=== PATIENT | male | born 1980 | race Caucasian/White ===

== ENCOUNTER 2021-10-31 13:31 | Emergency (ER) | payer SELFPAY ==
[~2021-10-31] VITALS: Ht 170.2 cm; Wt 108.9 kg
--- NOTE | 2021-10-31 13:50 | ED Upper Extremity ---
General Chief Complaint: Foreign Body Stated Complaint: R HAND NAIL IMBEDDED Source: patient Exam Limitations: no limitations (VIRGINIE SMITH APRN) History of Present Illness Date Seen by Provider: Oct 31, 2021 Time Seen by Provider: 13:50 Initial Comments To ER by employer with reports of a nail into the right hand that enters through the palmar aspect over the distal fifth metacarpal and exits dorsally over the more ulnar side. Tetanus is up-to-date. This was from a nail gun. Onset: just prior to arrival Severity: moderate Pain/Injury Location: right hand Method of Injury: unknown Modifying Factors: Improves With Movement (VIRGINIE SMITH APRN) Allergies and Home Medications Allergies Coded Allergies: No Known Drug Allergies (Unverified , 10/31/21) Patient Home Medication List Home Medication List Reviewed: Yes (VIRGINIE SMITH APRN) Cephalexin (Cephalexin) 500 Mg Tablet, 500 MG PO QID Prescribed by: VIRGINIE SMITH on 10/31/211610 Last Action: New Order Hydrocodone/Acetaminophen (Hydrocodone-Acetamin 5-325 mg) 1 Each Tablet, 1 TAB PO Q4H PRN for PAIN-MODERATE (5-7) Prescribed by: VIRGINIE SMITH on 10/31/211610 Last Action: New Order Review of Systems Constitutional: see HPI EENTM: see HPI Respiratory: no symptoms reported Cardiovascular: no symptoms reported Genitourinary: no symptoms reported Musculoskeletal: see HPI Skin: no symptoms reported Psychiatric/Neurological: No Symptoms Reported (VIRGINIE SMITH APRN) Physical Exam Vital Signs Vital Signs - First Documented 10/31/21 10/31/21 13:40 14:56 Temp 35.1 Pulse 79 Resp 16 B/P (MAP) 175/112 (133) Pulse Ox 99 O2 Delivery Room Air (MIKE BARRIOS MD) Vital Signs Capillary Refill : (VIRGINIE SMITH APRN) Height, Weight, BMI Height: '" Weight: lbs. oz. kg; BMI Method: General Appearance: WD/WN, no apparent distress HEENT: PERRL/EOMI, normal ENT inspection Respiratory: no respiratory distress, no accessory muscle use Shoulder: normal inspection, non-tender Elbow/Forearm: normal inspection, non-tender Wrist: Yes normal inspection, Yes non-tender Hand: Right, limited ROM (There is a nail that enters to the palmar aspect between the distal third and fourth metacarpals and exits dorsally over the base of the proximal phalanx of the pinky finger.) Neurologic/Psychiatric: alert, normal mood/affect, oriented x 3 Skin: normal color, warm/dry (VIRGINIE SMITH APRN) Departure Communication (Admissions) 1422-Tetanus is up-to-date, I anesthetized parallel to the nail with lidocaine without epinephrine. Nail was grasped with a pair of pliers and twisted to remove it. I suspect this penetrated through the proximal phalanx of the pinky finger. We will get a repeat x-ray to confirm. I then irrigated the tract using a 10 cc syringe and an 18-gauge IV catheter tip through the nail tract wi th sterile saline. Covered with gauze left open and we will give him antibiotic prophylaxis. (VIRGINIE SMITH APRN) Impression Primary Impression: Foreign body in hand Disposition: 01 HOME, SELF-CARE Condition: Stable Departure-Patient Inst. Decision time for Depature: 14:23 (VIRGINIE SMITH APRN) Referrals: NO,LOCAL PHYSICIAN (PCP) Primary Care Physician ANA LILIA MONTIEL MD,GERARDO MAJOR,LACEY Mckeon MD Patient Instructions: Removal of Foreign Body in Skin Add. Discharge Instructions: 1. Leave this covered with a dressing, change daily and as needed you can shower letting water run over this and then pat it dry and reapply the bandage. Do not soak this for about 2 weeks. Do not use that hand for about 2 weeks. Follow-up with an orthopedic surgeon of your choosing. A list has been provided for you. Call Wednesday for an appointment. Take the pain medication and the antibiotic as directed. Return to ER for any worsening, redness or swelling or fevers. All discharge instructions reviewed with patient and/or family. Voiced understanding. Scripts Hydrocodone/Acetaminophen (Hydrocodone-Acetamin 5-325 mg) 1 Each Tablet 1 TAB PO Q4H PRN for PAIN-MODERATE (5-7), #14 TAB . Prov: VIRGINIE SMITH APRN 10/31/21 Cephalexin (Cephalexin) 500 Mg Tablet 500 MG PO QID, #28 TAB . Prov: VIRGINIE SMITH APRN 10/31/21 ATTENDING PHYSICIAN NOTE: I was physically present as attending physician in the emergency department during the care of this patient, but I was not directly involved in the decision making or delivery of care for this patient. (MIKE BARRIOS MD) VIRGINIE SMITH APRN Oct 31, 2021 13:50 MIKE BARRIOS MD Nov 06, 2021 07:07
[2021-10-31] MEDS ORDERED: TETANUS,DIPTH,PERTUSS P/F (BOOSTRIX) 0.5 ML VIAL IM ONE (14:00)
[2021-10-31] MEDS ORDERED: cefTRIAXone 1,000 MG VIAL IM ONE (14:00)
[2021-10-31] MEDS ORDERED: LIDOCAINE 1% INJ 20 ML VIAL INJ ONE (14:00)
[2021-10-31] MEDS ORDERED: ACHD5005 PO ×2 (14:25→16:11)
[2021-10-31] MEDS ORDERED: CEPH500T PO ×2 (14:25→16:11)
--- NOTE | 2021-10-31 14:27 | Diagnostic Imaging Report ---
EXAMINATION: Right hand radiograph EXAM DATE: 10/31/2021 COMPARISON: None available. HISTORY: nail in hand TECHNIQUE: Three views of the right hand. FINDINGS: A metallic foreign body, likely nail, is seen within the ulnar aspect of the right hand. Exact location of the nail is difficult to identify on these radiographs. No acute fracture is seen. The joint spaces are normal. The soft tissues are normal. No other radiopaque foreign body. IMPRESSION: 1. A metallic nail is seen through the ulnar aspect of the right hand, likely involving the fourth and fifth metacarpophalangeal joint space areas. No acute fracture is seen to confirm osseous involvement. Recommend correlation with physical exam. Dictated by: Dictated on workstation # [id number]
[2021-10-31 14:56] VITALS: BP 134/75
--- NOTE | 2021-10-31 14:56 | Diagnostic Imaging Report ---
HISTORY: Nail removal from the right hand. TECHNIQUE: Three views of the right hand. COMPARISON: Radiographs from the same day. FINDINGS: The metal nail has been removed from the right hand. No residual metal foreign body is seen. There is no screw tract through the bone, and no bony defect to indicate bony involvement. The alignment appears normal, and joint spaces are preserved. IMPRESSION: 1. Removal of the metal nail from the right hand with no residual foreign body seen. No bony defect is identified. Dictated by: Dictated on workstation # [id number]
== END 2021-10-31 14:56 | disposition home or self-care (01) ==
LOC: ER 13:35
DX: S61.441A Puncture wound with foreign body of right hand, initial encounter (principal); W29.4XXA Contact with nail gun, initial encounter; Y99.0 Civilian activity done for income or pay
CPT/HCPCS: 73130; 90471; 96372